=== PATIENT | male | born 1945 ===

== ENCOUNTER 2025-10-17 11:00 | Day surgery (SDC) | payer OTHER ==
[2025-10-05 08:01] LABS: BASO % 0.9 % (0.1-1.2); EOS # 0.63 (0.04-0.54); EOS % 9.8 % (0.7-7.0); LYMPH # 1.24 (1.18-3.74); LYMPH % 19.4 % (19.3-53.1); MEAN PLATELET VOLUME 9.20 fl (9.4-12.4); MONO # 0.58 (0.24-0.82); MONO % 9.1 % (4.7-12.5); NEUT # 3.84 (1.56-6.13); NEUT % 60.0 % (34.0-71.1); RED CELL DISTRIBUTION WIDTH 12.8 % (11.6-14.4)
[2025-10-05 08:07] LABS: URINE APPEARANCE Clear; URINE BILIRRUBIN Negative (NEGATIVE); URINE BLOOD Trace; URINE COLOR Yellow; URINE GLUCOSE Negative (NEGATIVE); URINE KETONE Negative (NEGATIVE); URINE LEUKOCYTE Negative; URINE NITRATE Negative; URINE PROTEIN 30 (NEGATIVE); URINE UROBILINOGEN 0.2 E.U./dl
[2025-10-05 08:10] LABS: URINE BACTERIA 5.9 uL (0.0-1933); URINE RBC 7.6 uL (0.0-20.8)
[2025-10-05 08:46] VITALS: BP 150/76
[2025-10-05 08:50] LABS: INR 1.0
[2025-10-05 08:51] LABS: ALT/SGPT 20.0 U/L (12-78); AST/SGOT 20.0 U/L (15-37); BILIRUBIN TOTAL 1.23 mg/dL (0.3-1.2); BUN CREA RATIO 14.0 (7.0-25.0); CREATININE SERUM 1.07 mg/dL (0.70-1.30); GFR 66.33; GLOBULINA 4.4 G/DL (2.4-3.5); GLUCOSE FASTING 110.0 mg/dL (65-100); OSMOLALITY SERUM 281.0 MOSM/KG (275-295)
[2025-10-05 09:14] LABS: URINE CAST 0.00 uL (0.0-1.40); URINE EPITHELIAL CELLS 0.0 uL (0.0-38.8); URINE WBC 0.1 uL (0.0-23.2)
[~2025-10-17] VITALS: Ht 180.3 cm; Wt 77.1 kg
[~2025-10-17 11:00] MED LIST: AMLODIPINE-OLM1 EAC3 PO; ASA81 MG PO; ATORVASTATIN CA10 MG; AVAPRO300 MG PO; LEVOTHYROXINE25 MCG
[2025-10-17] MEDS ORDERED: CEFAZOLIN SODIUM 1,000 MG VIAL ONE (12:06)
[2025-10-17] MEDS ORDERED: SUGAMMADEX SODIUM 200 MG/2 ML VIAL IV ONE ×2 (17:15→19:06)
== END 2025-10-17 21:00 | disposition home or self-care (01) ==
LOC: CIR.AMB 11:00
PROVIDERS: ATTEND Surgery
DX: K43.6 Other and unspecified ventral hernia with obstruction, without gangrene (principal)